=== PATIENT | female | born 1985 | race Caucasian/White ===

== ENCOUNTER 2016-09-16 03:54 | Inpatient (IN) | payer BC ==
[~2016-09-16] VITALS: Ht 180.3 cm; Wt 94.1 kg
[2016-09-16] VITALS (10 sets, daily range): BP systolic 118–150; BP diastolic 66–88; PULSE 74–139; TEMP 98–98.8
[2016-09-16 06:32] LABS: BASO % 0.2 % (0.0-2.0); GRAN # 18.9 (1.4-6.5); GRAN % 89.1 % (42.2-75.2); LYMPH # 1.3 (1.2-3.4); LYMPH % 6.3 % (20.0-51.0); MEAN CELL VOLUME 89 fl (80.0-100.0); MEAN CORPUSCULAR HGB CONC 32 g/dl (33.0-37.0); MEAN PLATELET VOLUME 10.2 fl (7.4-10.4); MONO # 0.7 (0.1-0.6); MONO % 3.5 % (1.7-9.3); PLATELET COUNT 338 K/mm3 (130-400); RED BLOOD COUNT 3.25 M/mm3 (4.10-5.30); REDCELL DISTRIBUTION WIDTH-CV 13.3 % (11.5-14.5)
[2016-09-16 07:01] LABS: HEMOGLOBIN 9.4 g/dl (12.5-16.0); MEAN CORPUSCULAR HEMOGLOBIN 29 pg (27.0-31.0); WHITE BLOOD COUNT 21.2 K/mm3 (4.8-10.8)
[2016-09-16] MEDS ORDERED: ZANTAC 150MG T150 MG PO (07:08)
[2016-09-16] MEDS ORDERED: PRENATAL PO (07:09)
[2016-09-17 01:15] VITALS: BP 133/77; PULSE 77; TEMP 97.4
[2016-09-17 07:21] VITALS: BP 117/76; PULSE 86; TEMP 98
[2016-09-17] MEDS ORDERED: PERCOCET 325 MG1 TA2 PO (08:41)
[2016-09-17] MEDS ORDERED: MOTRIN 800800 MG/TAB PO (08:41)
[2016-09-17 09:51] LABS: BASO % 0.3 % (0.0-2.0); GRAN # 12.1 (1.4-6.5); GRAN % 78.8 % (42.2-75.2); LYMPH # 2.4 (1.2-3.4); LYMPH % 15.7 % (20.0-51.0); MEAN CELL VOLUME 91 fl (80.0-100.0); MEAN CORPUSCULAR HGB CONC 32 g/dl (33.0-37.0); MEAN PLATELET VOLUME 9.7 fl (7.4-10.4); MONO # 0.7 (0.1-0.6); MONO % 4.5 % (1.7-9.3); PLATELET COUNT 292 K/mm3 (130-400); RED BLOOD COUNT 2.84 M/mm3 (4.10-5.30); REDCELL DISTRIBUTION WIDTH-CV 13.5 % (11.5-14.5); WHITE BLOOD COUNT 15.4 K/mm3 (4.8-10.8)
[2016-09-17 09:52] LABS: HEMATOCRIT 25.9 % (37.0-47.0); HEMOGLOBIN 8.3 g/dl (12.5-16.0); MEAN CORPUSCULAR HEMOGLOBIN 29 pg (27.0-31.0)
[2016-09-17 22:30] VITALS: BP 134/114; PULSE 84; TEMP 100.5
[2016-09-18 03:00] VITALS: BP 120/76; PULSE 85; TEMP 98.5
[2016-09-18 06:45] VITALS: BP 128/77; PULSE 101; TEMP 97.9
== END 2016-09-18 10:50 | disposition home or self-care (01) | DRG 776 ==
LOC: LDRO 03:54 → OB 03:55 → LDR 03:55 → OB 06:50 → LDRO 09-26 14:30
PROVIDERS: Obstetrics & Gynecology
DX: Z39.0 Encounter for care and examination of mother immediately after delivery (principal); O34.211 Maternal care for low transverse scar from previous cesarean delivery; N85.8 Other specified noninflammatory disorders of uterus; O99.825 Streptococcus B carrier state complicating the puerperium; Z3A.38 38 weeks gestation of pregnancy
CPT/HCPCS: J2590

== ENCOUNTER 2016-09-21 15:34 | Day surgery (SDC) | payer BC ==
[2016-09-21] VITALS (10 sets, daily range): BP systolic 118–133; BP diastolic 63–86; PULSE 84–97; TEMP 98.6–99.5
[~2016-09-21] VITALS: Ht 180.3 cm; Wt 87.3 kg
[~2016-09-21 15:34] MED LIST: MOTRIN 800800 MG/TAB PO; PERCOCET 325 MG1 TA2 PO; PRENATAL PO; ZANTAC 150MG T150 MG PO
[2016-09-21] MEDS ORDERED: TYLENOL 325MG325 MG PO (15:51)
[2016-09-21] MEDS ORDERED: STOOL SOFTENER100 M2 PO (15:52)
[2016-09-22 00:45] VITALS: BP 120/67; PULSE 84; TEMP 98.8
[2016-09-22 04:45] VITALS: BP 116/67; PULSE 74; TEMP 97.7
[2016-09-22 08:08] LABS: BASO % 0.4 % (0.0-2.0); GRAN # 7.4 (1.4-6.5); GRAN % 73.5 % (42.2-75.2); LYMPH # 1.7 (1.2-3.4); MEAN CELL VOLUME 91 fl (80.0-100.0); MEAN CORPUSCULAR HGB CONC 32 g/dl (33.0-37.0); MEAN PLATELET VOLUME 9.5 fl (7.4-10.4); MONO # 0.8 (0.1-0.6); MONO % 8.4 % (1.7-9.3); PLATELET COUNT 306 K/mm3 (130-400); RED BLOOD COUNT 2.54 M/mm3 (4.10-5.30); REDCELL DISTRIBUTION WIDTH-CV 13.7 % (11.5-14.5)
[2016-09-22 08:12] LABS: HEMATOCRIT 23.2 % (37.0-47.0); HEMOGLOBIN 7.3 g/dl (12.5-16.0); MEAN CORPUSCULAR HEMOGLOBIN 29 pg (27.0-31.0)
[2016-09-22 08:13] VITALS: BP 125/84; PULSE 88; TEMP 98
[2016-09-22] MEDS ORDERED: AMOXICILLIN/CLA1 TA1 PO (08:24)
== END 2016-09-22 10:50 | disposition home or self-care (01) ==
LOC: COL.ER 15:34 → SDCO 17:00 → COL.ER 17:06 → SDCO 09-22 10:50
PROVIDERS: Obstetrics & Gynecology
DX: O72.2 Delayed and secondary postpartum hemorrhage (principal); N71.9 Inflammatory disease of uterus, unspecified
CPT/HCPCS: J0690; J1580; J1885; J2210; J2405; J2704; J3010; J7030; J7120